=== PATIENT | female | born 1965 | race Caucasian/White ===

== ENCOUNTER 2016-05-20 21:49 | Emergency (ER) | payer BC ==
[2016-05-20] MEDS ORDERED: NS 0.9% 1000 ML* 1,000 ML IV ONE (22:31)
--- NOTE | 2016-05-20 22:51 | ED ---
Man Miranda Billy, scribed for Terry Mccall MD on 05/20/16 at 2232 . Abdominal Pain/Female - HPI Summary HPI Summary: Patient is a 51 year-old female coming to [facility] with intermittent LUQ abdominal pain since 1899 last night. Pain radiated throughout her arms bilaterally. She took a gabapentin before bed last night, which improved her symptoms. This morning, she woke up and it felt better, but she had a 15-minute episode of pain "so bad that she was brought to her knees." The pain has been constant for the last hour. Pain at this time 05/24. She also reports nausea. She states that she has had these spasms in the past, as they are a known side effect of her oral chemotherapy (to treat BCC) but she reports that they have never been quite so severe. - History of Current Complaint Chief Complaint: EDAbdPain Stated Complaint: ABD PAIN Time Seen by Provider: 05/20/16 22:24 Hx Obtained From: Patient Hx Last Menstrual Period: Mirena - NO MENSES Onset/Duration: Gradual Onset, Lasting Hours, Still Present Timing: Intermittent Episode Lasting Severity Initially: Moderate Severity Currently: Moderate Pain Intensity: 1 Pain Scale Used: 0-10 Numeric Location: Discrete At: LUQ Radiates: Yes Radiates to: Other - arms Character: Other: - "spasms" Aggravating Factor(s): Nothing Alleviating Factor(s): Nothing Associated Signs and Symptoms: Positive: Nausea Allergies/Adverse Reactions: Allergies Allergy/AdvReac Type Severity Reaction Status Date / Time Azithromycin AdvReac Severe See Comment Verified 10/28/15 16:07 Acetaminophen [From Tylenol] AdvReac Unknown See Comment Verified 10/28/15 16:07 HAS STOMACH ULCER Allergy Severe See Comment Uncoded 10/28/15 16:07 PMH/Surg Hx/FS Hx/Imm Hx Endocrine/Hematology History: Denies: Hx Diabetes, Hx Thyroid Disease Cardiovascular History: Denies: Hx Congestive Heart Failure, Hx Hypertension, Hx Pacemaker/ICD Respiratory History: Denies: Hx Asthma, Hx Chronic Obstructive Pulmonary Disease (COPD) GI History: Reports: Other GI Disorders Denies: Hx Ulcer History: Denies: Hx Renal Disease Sensory History: Reports: Hx Contacts or Glasses - GLASSES Opthamlomology History: Reports: Hx Contacts or Glasses - GLASSES Neurological History: Reports: Other Neuro Impairments/Disorders - HX OF VERTIGO Psychiatric History: Reports: Hx Panic Disorder - ONCE - Cancer History Cancer Type, 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 - Social History Alcohol Use: Rare Substance Use Type: Reports: None Smoking Status (MU): Former Smoker Review of Systems Negative: Fever Positive: Abdominal Pain, Nausea All Other Systems Reviewed And Are Negative: Yes Physical Exam Triage Information Reviewed: Yes Vital Signs On Initial Exam: Initial Vitals Temp Pulse Resp BP Pulse Ox 97 F 64 16 147/75 100 05/20/16 21:51 05/20/16 21:51 05/20/16 21:51 05/20/16 21:51 05/20/16 21:51 Vital Signs Reviewed: Yes Appearance: Positive: Well-Appearing, No Pain Distress Skin: Positive: Warm Head/Face: Positive: Normal Head/Face Inspection ENT: Positive: Hearing grossly normal Neck: Positive: Supple Respiratory/Lung Sounds: Positive: Clear to Auscultation, Breath Sounds Present Cardiovascular: Positive: Normal Abdomen Description: Positive: Nontender, No Organomegaly, Soft. Negative: CVA Tenderness (R), CVA Tenderness (L) Bowel Sounds: Positive: Present Musculoskeletal: Positive: Strength/ROM Intact Neurological: Positive: Sensory/Motor Intact Psychiatric: Positive: Normal Diagnostics - Vital Signs Vital Signs Temp Pulse Resp BP Pulse Ox 05/20/16 21:51 97 F 64 16 147/75 100 - Laboratory Result Diagrams: 05/20/16 22:45 05/20/16 22:45 Lab Statement: Any lab studies that have been ordered have been reviewed, and results considered in the medical decision making process. Re-Evaluation - Re-Evaluation First Eval Change: Improved - rdsults d/wpt Abdominal Pain Fem Course/Dx - Course Course Of Treatment: 51 year-old female cancer patient coming to the ED with CC of abd pain. She states that these symptoms are similar, albeit worse, to previous episodes of pain related to her oral chemotherapy. In the ED, she was given Zofran, morphine IM, and IV NS. She will be discharged to follow-up with PCP. - Diagnoses Provider Diagnoses: Abdominal pain Discharge - Discharge Plan Condition: Stable Disposition: HOME Patient Education Materials: Abdominal Pain (ED) Referrals: Martin Landin MD [Primary Care Provider] - The documentation as recorded by the Man chappell Billy accurately reflects the service I personally performed and the decisions made by me, Terry Mccall MD.
[2016-05-20 23:00] LABS: Hematocrit 40 % (35-47); Hemoglobin 13.3 g/dl (12.0-16.0); Mean Corpuscular HGB Conc 33 g/dl (31-36); Mean Corpuscular Hemoglobin 26 pg (27-31); Mean Corpuscular Volume 79 fL (80-97); Mean Platelet Volume 9 um3 (7.4-10.4); Red Blood Count 5.07 10^6/ul (4.0-5.4); Red Cell Distribution Width 15 % (10.5-15); White Blood Count 5.7 10^3/ul (3.5-10.8)
[2016-05-20] MEDS ORDERED: Ondansetron INJ* 2 MG/ML VIAL ONE (23:11)
[2016-05-20 23:12] LABS: Albumin 3.9 g/dL (3.2-5.2); BUN/Creatinine Ratio 14.5 (8-20); Calcium 8.9 mg/dL (8.6-10.3); EGFR African American 93.6 (>60); EGFR Non-African American 72.8 (>60); Globulin 2.9 g/dL (2-4); Total Bilirubin 0.4 mg/dL (0.2-1.0); Total Protein 6.8 g/dL (6.4-8.9)
[2016-05-20] MEDS: Ondansetron ODT TAB* 4 MG PO ONE ×2 (23:26→23:39)
[2016-05-20] MEDS ORDERED: Ondansetron INJ* 2 MG/ML VIAL IV ONE (23:38)
[2016-05-20 23:50] LABS: Urine Bilirubin Negative (Negative); Urine Glucose Negative (Negative); Urine Nitrite Negative (Negative)
[2016-05-20] MEDS ORDERED: Morphine INJ* 4 MG/ML 1 ML CARPUJECT IV ONE (23:58)
[2016-05-21 01:11] VITALS: BP 118/71
== END 2016-05-21 01:10 | disposition home or self-care (01) ==
LOC: ED 21:49
DX: R10.12 Left upper quadrant pain (principal); R11.0 Nausea; C44.91 Basal cell carcinoma of skin, unspecified; Z88.6 Allergy status to analgesic agent; Z88.1 Allergy status to other antibiotic agents; Z87.891 Personal history of nicotine dependence
CPT/HCPCS: 36415; 80053; 81003; 83605; 85025; 96361; 96374; 96375; 99284; J2270; J2405

== ENCOUNTER 2016-11-18 07:34 | Emergency (ER) | payer BC ==
[2016-11-18 07:39] VITALS: BP 111/72
--- NOTE | 2016-11-18 07:57 | UC ---
Shoulder Pain HPI - HPI Summary HPI Summary: ONSET OF RIGHT ANTERIOR SHOULDER PAIN YESTERDAY. WAS MOVING BOXES THE DAY BEFORE. NO OTHER DISCRETE INJURY. - History of Current Complaint Chief Complaint: UCUpperExtremity Stated Complaint: SHOULDER PAIN Time Seen by Provider: 11/18/16 07:46 Hx Obtained From: Patient Hx Last Menstrual Period: Mirena - NO MENSES Onset/Duration: Sudden Onset, Lasting Hours, Still Present Timing: Constant Severity Initially: Moderate Severity Currently: Moderate Pain Intensity: 4 Pain Scale Used: 0-10 Numeric Character: Sharp Aggravating Factor(s): Movement Alleviating Factor(s): Rest Associated Signs And Symptoms: Positive: Negative Related History: Dominant Hand Right - Allergies/Home Medications Allergies/Adverse Reactions: Allergies Allergy/AdvReac Type Severity Reaction Status Date / Time Azithromycin AdvReac Severe See Comment Verified 10/13/16 09:28 Acetaminophen [From Tylenol] AdvReac Unknown See Comment Verified 10/13/16 09:28 HAS STOMACH ULCER Allergy Severe See Comment Uncoded 10/13/16 09:28 PMH/Surg Hx/FS Hx/Imm Hx Other Cancer History: BASAL CELL NEVUS SYNDROME - Surgical History Surgical History: Yes Surgery Procedure, Year, and Place: LAPBAND,KNEE,NOSE,BREAST,INTESTINAL INTUCCEPTION-4 YRS AGO([facility]) (PARTIAL COLECTOMY) - Family History Known Family History: Positive: Hypertension Family History: No FHx of malignant hyperthermia or anesthesia reaction. - Social History Alcohol Use: Rare Substance Use Type: None Smoking Status (MU): Former Smoker When Did the Patient Quit Smoking/Using Tobacco: 18 years ago - Immunization History Most Recent Influenza Vaccination: 2014 Review of Systems Constitutional: Negative Skin: Negative Respiratory: Negative Cardiovascular: Negative Gastrointestinal: Negative Musculoskeletal: Arthralgia All Other Systems Reviewed And Are Negative: Yes Physical Exam Triage Information Reviewed: Yes Appearance: Well-Appearing, No Pain Distress, Well-Nourished Vital Signs: Initial Vital Signs Temp 97.6 F 11/18/16 07:36 Pulse 53 11/18/16 07:36 Resp 16 11/18/16 07:36 BP 111/72 11/18/16 07:36 Pulse Ox 100 11/18/16 07:36 Vital Signs Reviewed: Yes Eyes: Positive: Conjunctiva Clear ENT: Positive: Hearing grossly normal Neck: Positive: Supple Respiratory: Positive: No respiratory distress, No accessory muscle use Cardiovascular: Positive: Pulses Normal Abdomen Description: Positive: Soft Musculoskeletal: Positive: ROM Intact, No Edema, Other: - TTP BICEPS TENDON. POSITIVE YERGASONS AND SPEEDS Neurological: Positive: Alert Psychological: Positive: Age Appropriate Behavior Skin: Negative: rashes Diagnostics - Radiology RIGHT SHOULDER XRAY Xray Interpretation: Positive (See Comments) - A.C. OSTEOARTHRITIS. NO ACUTE OSSEOUS INJURY Radiology Interpretation Completed By: Radiologist Shoulder Course/Dx - Differential Dx/Diagnosis Provider Diagnoses: RIGHT BICEPS TENDONITIS Discharge - Discharge Plan Condition: Stable Disposition: HOME Prescriptions: Naproxen [Naproxen EC] 500 mg PO BID PRN #30 tab PRN Reason: Pain Patient Education Materials: Tendinitis (ED) Referrals: Chuy Roland MD [Medical Doctor] - If Needed Martin Landin MD [Primary Care Provider] - If Needed Additional Instructions: XRAY TODAY UNREMARKABLE. PRESENTATION CONSISTENT WITH BICEPS TENDONITIS. NSAIDS NEEDED. SLING FOR COMFORT. REFERRAL FOR PT PROVIDED TODAY. FOLLOW-UP ORTHO IF NOT IMPROVING. What is biceps tendinopathy? Biceps tendinopathy is a condition that can cause pain in the front of the shoulder. Doctors use the term biceps tendinopathy when people have a problem with their biceps tendon. The biceps is the muscle in the front of the upper arm. Tendons are strong bands of tissue that connect muscles to bones. In most people with biceps tendinopathy, the tendons are not inflamed or swollen. If they do get inflamed or swollen, doctors call it tendinitis. What causes biceps tendinopathy? This condition can happen as people get older , especially if they do a lot of work or activity with their arms overhead. Tendinitis can happen if people hurt their upper arm or shoulder, or do the same movements over and over. What are the symptoms of biceps tendinopathy? The most common symptoms are: Pain in the front of the shoulder The pain is usually worse at night and with lifting, pulling, or reaching overhead. Trouble moving the upper arm and shoulder People with tendinitis can also have swelling. Sometimes, an injured tendon tears. This can cause a sudden pop, pain, bruising , or swelling. Will I need tests? You might. Your doctor or nurse will talk with you and do an exam. He or she might also do an imaging test, such as an ultrasound or MRI scan. Imaging tests create pictures of the inside of the body. How is biceps tendinopathy treated? Most of the time, this condition will get better on its own, but it can take weeks to months to heal completely. For the first few days or weeks of your symptoms, you can try the following steps to see if you feel better: Rest your arm and shoulder Avoid lifting or reaching overhead. Try to keep your arm down, close to, and in front of your body. If you find you need to keep your arm still and close to your body for a while, do some pendulum swings (described below) from time to time. This will help keep you from getting too stiff. Ice the painful area Put a cold gel pack, bag of ice, or bag of frozen vegetables on the injured area every 1 to 2 hours, for 15 minutes each time, as needed. Put a thin towel between the ice (or other cold object) and your skin. Take medicine to reduce the swelling and pain To treat pain, you can take acetaminophen(sample brand name: Tylenol). Your doctor might also recommend that you take a nonsteroidal anti-inflammatory drug or NSAID. NSAIDs are a group of medicines that includes ibuprofen (sample brand names: Advil, Motrin) and naproxen (sample brand names: Aleve, Naprosyn). If your symptoms dont improve with these treatments, your doctor or nurse might recommend that you have physical therapy (work with an exercise expert). He or she might also recommend that you do exercises at home. The following shoulder exercises can help stretch your shoulder and keep it from getting too stiff: Pendulum swing Let your arm relax and hang down, while you sit or stand. Move your arm back and forth, then side to side, and then around in small circles. Try to do this exercise for 5 minutes, 1 or 2 times a day. Your doctor might suggest that you hold a weight in your hand when doing the exercise to make it harder. Wall walk Face a wall, and stand close enough so that you can touch the wall with your fingertips. Stretch out your arm, parallel to the floor, and put your fingertips on the wall. Then walk your fingers up the wall until you feel mild soreness or aching. Keep your shoulders level (do not shrug them). Try to do this exercise for 5 minutes, 2 or 3 times a day When you do these exercises, its important to: Warm up your shoulder first by taking a hot shower or bath, or putting a heating pad on it. Start slowly and make the exercises harder over time. Know that some soreness is normal. If you have sharp or tearing pain, stop what youre doing and let your doctor or nurse know. What if my symptoms dont get better? If your symptoms dont get better, talk with your doctor or nurse about other possible treatments, such as: Getting a shot of medicine into the painful area Surgery When will I be able to do my usual activities again? You can return to your usual activities when you are able to move your arm in all directions without pain. To avoid hurting yourself, restart your activities or sports slowly.
--- NOTE | 2016-11-18 08:51 | RAD ---
HISTORY: Right shoulder pain COMPARISONS: None VIEWS: 5, Frontal internal rotation, external rotation, outlet, and axillary views of the right shoulder FINDINGS: BONE DENSITY: Normal. BONES: There is no displaced fracture. JOINTS: There is osteoarthritis of the AC joint ALIGNMENT: There is no dislocation. SOFT TISSUES: Unremarkable. OTHER FINDINGS: None. IMPRESSION: A.C. OSTEOARTHRITIS. NO ACUTE OSSEOUS INJURY. IF SYMPTOMS PERSIST, RECOMMEND REPEAT IMAGING.
== END 2016-11-18 09:27 | disposition home or self-care (01) ==
LOC: UCEAST 07:34
DX: M75.21 Bicipital tendinitis, right shoulder (principal); Z88.6 Allergy status to analgesic agent; Z88.3 Allergy status to other anti-infective agents; Z87.891 Personal history of nicotine dependence; Z98.84 Bariatric surgery status; Z90.49 Acquired absence of other specified parts of digestive tract
CPT/HCPCS: 99213; G0463

== ENCOUNTER 2016-12-17 21:17 | Observation (INO) | payer BC ==
[2016-12-17 22:23] LABS: Hematocrit 42 % (35-47); Hemoglobin 14.1 g/dl (12.0-16.0); Mean Corpuscular HGB Conc 34 g/dl (31-36); Mean Corpuscular Hemoglobin 27 pg (27-31); Mean Corpuscular Volume 80 fL (80-97); Mean Platelet Volume 8 um3 (7.4-10.4); Red Cell Distribution Width 16 % (10.5-15); White Blood Count 6.6 10^3/ul (3.5-10.8)
[2016-12-17] MEDS ORDERED: NS 0.9% 1000 ML* 1,000 ML IV ONE (22:30)
[2016-12-17] MEDS ORDERED: Morphine INJ* 4 MG/ML 1 ML SYRINGE IV ONE (22:30)
[2016-12-17] MEDS ORDERED: Ondansetron INJ* 2 MG/ML VIAL IV ONE (22:30)
[2016-12-17 22:39] LABS: Albumin 4.1 g/dL (3.2-5.2); Calcium 9.2 mg/dL (8.6-10.3); EGFR African American 92.3 (>60); EGFR Non-African American 71.8 (>60); Globulin 2.9 g/dL (2-4); Potassium 3.5 mmol/L (3.5-5.0); Total Bilirubin 0.5 mg/dL (0.2-1.0)
[2016-12-17] MEDS ORDERED: Iohexol 350* (CONTRAST) 500 ML MDV IV ONE (22:52)
[2016-12-17 23:50] LABS: C Reactive Protein 3.72 mg/L (< 5.00)
--- NOTE | 2016-12-18 00:42 | ED ---
I, Oh,Soohraulito, scribed for Sanaz Patterson MD on 12/17/16 at 2145 . HPI Chest Pain - HPI Summary HPI Summary: This 51 y/o female presents to ED for gradually worsening chest tightness since this morning. Positive for LUE numbling/tingling tonight. Lying down makes the pain worse. Exhaling after inhaling makes the pain worse. PMHx includes basocell CA with mets with ongoing chemo. Normal cardiac cath in 2013. Pt is currently on Erivedge. Primary care involves Dr. Tafoya in [place] as her oncologist and Dr. Landin. FHx is positive for unspecified cardiac dz to brother and CA. Plan of care involving CT chest and D-dimer is discussed with pt. R/b/a reviewed. - History of Current Complaint Chief Complaint: EDChestPainROMI Time Seen by Provider: 12/17/16 21:26 Hx Obtained From: Patient, Medical Records Hx Last Menstrual Period: Mirena - NO MENSES Onset/Duration: Started Hours Ago, Atraumatic, Still Present Timing: Constant Pain Intensity: 6 Pain Scale Used: 0-10 Numeric Chest Pain Location: Diffuse Chest Pain Radiates: No Character: Tightness Aggravating Factor(s): Position - Lying down Alleviating Factor(s): Upright Position Associated Signs and Symptoms: Positive: Numbness - LUE, Tingling - LUE - Allergy/Home Medications Allergies/Adverse Reactions: Allergies Allergy/AdvReac Type Severity Reaction Status Date / Time Azithromycin AdvReac Severe See Comment Verified 12/17/16 21:33 Acetaminophen [From Tylenol] AdvReac Unknown See Comment Verified 12/17/16 21:33 HAS STOMACH ULCER Allergy Severe See Comment Uncoded 12/17/16 21:33 PMH/Surg Hx/FS Hx/Imm Hx Endocrine/Hematology History: Denies: Hx Diabetes, Hx Thyroid Disease Cardiovascular History: Denies: Hx Congestive Heart Failure, Hx Hypertension, Hx Pacemaker/ICD Respiratory History: Denies: Hx Asthma, Hx Chronic Obstructive Pulmonary Disease (COPD) GI History: Reports: Hx Diverticulosis, Hx Jaundice, Hx Ulcer, Other GI Disorders - liver fx 2013 due to medication History: Reports: Hx Kidney Stones Denies: Hx Renal Disease Sensory History: Reports: Hx Contacts or Glasses - GLASSES Opthamlomology History: Reports: Hx Contacts or Glasses - GLASSES Neurological History: Reports: Hx Headaches, Other Neuro Impairments/Disorders - HX OF VERTIGO Psychiatric History: Reports: Hx Panic Disorder - ONCE - Cancer History Cancer Type, Location and Year: Basal cell nevus syndrome 2012 Hx Chemotherapy: Yes - AGRESSIVE SKIN CANCER, 2 MONTHS ON, 1 MONTH OFF Hx Radiation Therapy: No - Surgical History Surgery Procedure, Year, and Place: LAPBAND,KNEE,NOSE,BREAST,INTESTINAL INTUCCEPTION-4 YRS AGO([facility]) (PARTIAL COLECTOMY) Hx Anesthesia Reactions: No Infectious Disease History: Denies: Hx Clostridium Difficile, Hx Hepatitis, Hx Human Immunodeficiency Virus (HIV), Hx of Known/Suspected MRSA, Hx Shingles, Hx Tuberculosis, Hx Known/ Suspected VRE, Hx Known/Suspected VRSA, History Other Infectious Disease, Traveled Outside the [place] in Last 30 Days - Family History Known Family History: Positive: Cardiac Disease - Unspecified cardiac dz to brother, Hypertension - Social History Lives: With Family Alcohol Use: Rare Hx Substance Use: No Substance Use Type: Reports: None Hx Tobacco Use: Yes Smoking Status (MU): Former Smoker Review of Systems Negative: Fever Positive: Chest Pain Positive: Other - RLE pain Positive: Numbness - Numbness/tingling at LUE All Other Systems Reviewed And Are Negative: Yes Physical Exam Triage Information Reviewed: Yes Vital Signs On Initial Exam: Initial Vitals Temp Pulse Resp BP Pulse Ox 97.2 F 50 16 125/74 100 12/17/16 21:18 12/17/16 21:18 12/17/16 21:18 12/17/16 21:18 12/17/16 21:18 Vital Signs Reviewed: Yes Appearance: Positive: Pain Distress - moderate Head/Face: Positive: Normal Head/Face Inspection Eyes: Positive: EOMI, KIRT Neck: Positive: Supple, Nontender Respiratory/Lung Sounds: Positive: Decreased Breath Sounds - left Cardiovascular: Positive: RRR, Pulses are Symmetrical in both Upper and Lower Extremities Musculoskeletal: Positive: Strength/ROM Intact Neurological: Positive: Sensory/Motor Intact, Alert, Oriented to Person Place, Time Psychiatric: Positive: Affect/Mood Appropriate AVPU Assessment: Alert Diagnostics - Vital Signs Vital Signs Temp Pulse Resp BP Pulse Ox 12/17/16 21:18 97.2 F 50 16 125/74 100 - Laboratory Lab Results: Lab Results 12/17/16 12/17/16 12/17/16 Range/Units 22:15 22:15 22:15 WBC 6.6 (3.5-10.8) 10^3/ul RBC 5.20 (4.0-5.4) 10^6/ul Hgb 14.1 (12.0-16.0) g/dl Hct 42 (35-47) % MCV 80 (80-97) fL MCH 27 (27-31) pg MCHC 34 (31-36) g/dl RDW 16 H (10.5-15) % Plt Count 196 (150-450) 10^3/ul MPV 8 (7.4-10.4) um3 Neut % (Auto) 71.6 (38-83) % Lymph % (Auto) 21.2 L (25-47) % Barry % (Auto) 4.4 (1-9) % Eos % (Auto) 1.7 (0-6) % Baso % (Auto) 1.1 (0-2) % Absolute Neuts (auto) 4.7 (1.5-7.7) 10^3/ul Absolute Lymphs (auto) 1.4 (1.0-4.8) 10^3/ul Absolute Monos (auto) 0.3 (0-0.8) 10^3/ul Absolute Eos (auto) 0.1 (0-0.6) 10^3/ul Absolute Basos (auto) 0.1 (0-0.2) 10^3/ul Absolute Nucleated RBC 0.02 10^3/ul Nucleated RBC % 0.3 Sodium 137 (133-145) mmol/L Potassium 3.5 (3.5-5.0) mmol/L Chloride 104 (101-111) mmol/L Carbon Dioxide 25 (22-32) mmol/L Anion Gap 8 (2-11) mmol/L BUN 16 (6-24) mg/dL Creatinine 0.84 (0.51-0.95) mg/dL Est GFR ( Amer) 92.3 (>60) Est GFR (Non-Af Amer) 71.8 (>60) BUN/Creatinine Ratio 19.0 (8-20) Glucose 95 (70-100) mg/dL Lactic Acid 1.2 (0.5-2.0) mmol/L Calcium 9.2 (8.6-10.3) mg/dL Total Bilirubin 0.50 (0.2-1.0) mg/dL AST 18 (13-39) U/L ALT 11 (7-52) U/L Alkaline Phosphatase 48 (34-104) U/L Troponin I 0.00 (<0.04) ng/mL C-Reactive Protein 3.72 (< 5.00) mg/L Total Protein 7.0 (6.4-8.9) g/dL Albumin 4.1 (3.2-5.2) g/dL Globulin 2.9 (2-4) g/dL Albumin/Globulin Ratio 1.4 (1-3) Result Diagrams: 12/17/16 22:15 12/17/16 22:15 Lab Statement: Any lab studies that have been ordered have been reviewed, and results considered in the medical decision making process. - Radiology CXR Radiology Interpretation Completed By: ED Physician - See EMR - CT CTA chest/thorax CT Interpretation: No Acute Changes CT Interpretation Completed By: Radiologist - EKG 2126 Cardiac Rate: Bradycardia EKG Rhythm: Sinus Bradycardia - 50 bpm EKG Interpretation: Normal compared to 05/02/2014 0018 Cardiac Rate: Bradycardia EKG Rhythm: Sinus Bradycardia - 47 bpm Re-Evaluation - Re-Evaluation First Eval Re-Evaluation Time: 00:23 Comment: MD in room to re-evaluate pt. Chest Pain Course/Dx - Course Course Of Treatment: 51 yo female with family hx of dvt and progressive skin ca diagnosis with chest pain, cta neg but pt had several bouts of tightness with pvc's. case was discussed with Dr. Black who will see pt - Diagnoses Provider Diagnoses: Chest pain - Provider Notifications Discussed Care Of Patient With: Keith Black Time Discussed With Above Provider: 00:27 Instructed by Provider To: Admit As Inpatient Discharge - Discharge Plan Condition: Stable Disposition: ADMITTED TO [facility] Referrals: Martin Landin MD [Primary Care Provider] - The documentation as recorded by the Chris chappell Soohyun accurately reflects the service I personally performed and the decisions made by me, Sanaz Patterson MD.
[2016-12-18] MEDS ORDERED: Morphine INJ* 4 MG/ML 1 ML SYRINGE IV ONE (00:44)
--- NOTE | 2016-12-18 01:13 | HP ---
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 She denies SOB, emesis, palpitations, F/C, cough, congestion, change in activity, or injury. She denies HX of similar. She is a light former smoker and has a family HX positive for early onset CAD. Pain has been helped by morphine and is worse lying flat or exhaling. ECG is benign. Troponin is 0.00. PMedHx basal cell nevus syndrome PUD psoriasis Ambulatory Orders Vismodegib [Erivedge] 150 mg PO DAILY 11/27/13 Epinephrine [Epipen 2-Kali] 0.3 mg SUBCUT ONCE PRN #1 kali 10/28/15 LoraTADine TAB(NF) [Claritin 10 MG TAB(NF)] 10 mg PO DAILY PRN #30 tab 10/28/15 Triamcinolone 0.1% CREAM(NF) [Kenalog Cream 0.1%(NF)] 1 applic TOPICAL TID PRN # 1 tube 10/28/15 diPHENhydraMINE PO* [Benadryl PO 50 MG CAP*] 50 mg PO Q6H PRN #30 cap 10/28/15 Morphine Sulfate [Morphine Sulfate Cr] 15 mg PO Q6H PRN 08/02/16 Pregabalin CAP(*) [Lyrica CAP(*)] 75 mg PO BEDTIME 08/02/16 Cyanocobalamin [B12] 1,000 mcg PO DAILY 10/13/16 Magnesium Oil 1 spray TOPICAL DAILY 10/13/16 Naproxen [Naproxen EC] 500 mg PO BID PRN #30 tab 11/18/16 Allergies Azithromycin Adverse Reaction (Severe, Verified 12/17/16 21:33) See Comment Cannot take concurrently with Erivedge d/t acute liver failure when she did these two medications together. Acetaminophen [From Tylenol] Adverse Reaction (Unknown, Verified 12/17/16 21:33) See Comment 7/16/14 - states that she does not take tylenol d/t recent acute liver failure 2ndary to taking zithromax with eviredge. HAS STOMACH ULCER Allergy (Severe, Uncoded 12/17/16 21:33) See Comment CANNOT TAKE MEDS THAT WOULD IRRITATE STOMACH ULCERS. PSurgHx septoplasty lap band bowel resection 2nd intussusception numerous BCC excisions SocHx: no tobacco, alcohol, or recreational drugs; lives with her ; has applied for disability; full code status FamHx: She is one of 14 siblings. Mother passed at 90 w/ colon CA, HTN, & a heart valve disorder. Father passed with HX of BCNS, late onset CAD, & CVA. A sister passed at 50 of an DC. Another sister passed of small bowel CA. A brother has hypertrophic cardiomyopathy. Otherwise positive for HTN & HLD. ROS: as above, otherwise reviewed and all were negative Constitutional: NAD, normally developed, overweight white female vitals: Vital Signs Temp 36.7 C 12/17/16 21:28 Pulse 50 12/17/16 21:28 Resp 16 12/18/16 01:04 BP 122/80 12/17/16 21:28 Pulse Ox 97 12/17/16 21:28 Intake & Output 12/17/16 12/17/16 12/18/16 11:59 23:59 11:59 Weight 86.183 kg HEENM: atraumatic; mild macrocephaly with hypertelorism; sclera/conjunctiva: non -icteric/clear; hearing: clinically intact; oropharynx: clear, mucosa tacky Neck: soft tissue: non-tender; thyroid: normal Pulmonary: clear to auscultation bilaterally, good aeration, no accessory muscle use CV: RR/RR, normal S1S2, no carotid bruit, no jugular venous distention, 2+ B DP/ PT, no edema Abdominal: soft, non-distended, non-tender, no rebound/guarding/rigidity, normoactive bowel sounds, no hepatosplenomegaly or masses, no costovertebral angle tenderness Musculoskeletal: general: grossly intact; gait: stable Integumental: normal appearance and texture of exposed skin Psychiatric orientation: AA&O to PPS affect: calm mood: cooperative eye contact: good content: reliable responses: timely insight: good Testing: Lab Results 12/17/16 12/17/1617 Range/Units 22:15 22:15 22:15 WBC 6.6 (3.5-10.8) 10^3/ul RBC 5.20 (4.0-5.4) 10^6/ul Hgb 14.1 (12.0-16.0) g/dl Hct 42 (35-47) % MCV 80 (80-97) fL MCH 27 (27-31) pg MCHC 34 (31-36) g/dl RDW 16 H (10.5-15) % Plt Count 196 (150-450) 10^3/ul MPV 8 (7.4-10.4) um3 Neut % (Auto) 71.6 (38-83) % Lymph % (Auto) 21.2 L (25-47) % Bremer % (Auto) 4.4 (1-9) % Eos % (Auto) 1.7 (0-6) % Baso % (Auto) 1.1 (0-2) % Absolute Neuts (auto) 4.7 (1.5-7.7) 10^3/ul Absolute Lymphs (auto) 1.4 (1.0-4.8) 10^3/ul Absolute Monos (auto) 0.3 (0-0.8) 10^3/ul Absolute Eos (auto) 0.1 (0-0.6) 10^3/ul Absolute Basos (auto) 0.1 (0-0.2) 10^3/ul Absolute Nucleated RBC 0.02 10^3/ul Nucleated RBC % 0.3 Sodium 137 (133-145) mmol/L Potassium 3.5 (3.5-5.0) mmol/L Chloride 104 (101-111) mmol/L Carbon Dioxide 25 (22-32) mmol/L Anion Gap 8 (2-11) mmol/L BUN 16 (6-24) mg/dL Creatinine 0.84 (0.51-0.95) mg/dL Est GFR ( Amer) 92.3 (>60) Est GFR (Non-Af Amer) 71.8 (>60) BUN/Creatinine Ratio 19.0 (8-20) Glucose 95 (70-100) mg/dL Lactic Acid 1.2 (0.5-2.0) mmol/L Calcium 9.2 (8.6-10.3) mg/dL Total Bilirubin 0.50 (0.2-1.0) mg/dL AST 18 (13-39) U/L ALT 11 (7-52) U/L Alkaline Phosphatase 48 (34-104) U/L Troponin I 0.00 (<0.04) ng/mL C-Reactive Protein 3.72 (< 5.00) mg/L Total Protein 7.0 (6.4-8.9) g/dL Albumin 4.1 (3.2-5.2) g/dL Globulin 2.9 (2-4) g/dL Albumin/Globulin Ratio 1.4 (1-3) ECG, personally reviewed: sinus bradycardia rate 47, no ischemia, poor R-wave progression CXR, personally reviewed: no acute process CTA chest, personally reviewed: no PE; official report pending Impression: 51F presenting with chest pain for r/o ACS DIAGNOSIS & PLAN Primary chest pain r/o ACS : telemetry : trend troponin : aspirin : no beta tyler 2nd bradycardia : 1/2" nitropaste : supplemental oxygen : if negative troponins, no ischemic ECG changes, or relevant telemetry abnormalities consider outpatient stress next week Secondary basal cell nevus syndrome : continue vismodegib 150mg PO daily PUD : IV pantoprazole Admission Rational: CDU observation for r/o ACS DVTp: SCDs Code Status: full HCP:
[2016-12-18] MEDS ORDERED: Albuterol 2.5 MG/3 ML NEB.SOL* (0.083%) INH PRN (01:16)
[2016-12-18] MEDS ORDERED: Morphine INJ* 2 MG/ML 1 ML SYRINGE IV PRN (01:48)
[2016-12-18] MEDS ORDERED: Ondansetron INJ* 2 MG/ML VIAL IV PRN (01:48)
[2016-12-18] MEDS ORDERED: Aspirin Low Dose CHEW TAB* 81 MG PO ONE (01:48)
[2016-12-18] MEDS ORDERED: Pantoprazole IV* 40 MG IV SCH (02:00)
[2016-12-18] MEDS ORDERED: NS 0.9% 1000 ML* 1,000 ML IV SCH (02:00)
[2016-12-18] MEDS: Nitroglycerin 2% OINT* 1 GM PAK TOPICAL SCH ×2 (02:28→08:02)
[2016-12-18] MEDS ORDERED: Omeprazole CAP* 20 MG PO SCH (06:00)
[2016-12-18] MEDS ORDERED: Nitro Patch/OINT Remove PATCH OFF SCH (08:00)
[2016-12-18] MEDS ORDERED: Docusate CAP* 100 MG PO SCH (09:00)
--- NOTE | 2016-12-18 10:15 | RAD ---
INDICATION: Pleuritic chest pain. History of skin cancer. Heaviness with breathing. COMPARISON: Chest radiograph of the same date and May 02, 2014 CT. TECHNIQUE: Multidetector CT images were obtained from the lung apices to the upper abdomen with 74 mL Omnipaque 350 IV contrast. Pulmonary angiogram protocol. Multiplanar reformation including with maximum intensity projection. REPORT: Clear lungs and pleural spaces. Negative for thoracic lymphadenopathy. 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 Normal diameter thoracic aorta. Upper normal heart size. Negative for pericardial effusion. No filling defects are identified from the main to the subsegmental pulmonary arteries to indicate presence of a pulmonary embolism. Limited images through the upper abdomen are remarkable for cholelithiasis and a laparoscopic gastric band. 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 No suspicious focal osseous lesions evident. IMPRESSION: No evidence for pulmonary embolism or other acute intrathoracic process.
--- NOTE | 2016-12-18 11:28 | RAD ---
Indication: Chest pain intermittent for one week. Now LEFT-sided. Comparison: CT pulmonary angiogram of the same date. Technique: Upright AP 2204 hours Report: Clear lungs and pleural spaces. Negative for pneumothorax. The heart, pulmonary vasculature, and mediastinal contours are unremarkable. Unremarkable osseous structures and soft tissue contours. IMPRESSION: No evidence for acute intrathoracic disease.
[2016-12-18 11:34] VITALS: BP 96/62
--- NOTE | 2016-12-19 07:13 | DS ---
CC: Dr. Landin * DISCHARGE SUMMARY: DATE OF ADMISSION: 12/17/16 DATE OF DISCHARGE: 12/18/16 PRIMARY CARE PROVIDER: Dr. Landin. PRIMARY DIAGNOSES: Chest pain secondary to costochondritis or muscle spasm. SECONDARY DIAGNOSES: 1. Basal cell nevus syndrome. 2. Peptic ulcer disease. 3. Psoriasis. MEDICATIONS ON DISCHARGE: Unchanged from admission. Includes: 1. Magnesium oil 1 spray topically daily. 2. Loratadine 10 mg daily as needed. 3. Vitamin B12 1000 mcg daily. 4. Naproxen 500 mg twice daily as needed. 5. Morphine sulfate 15 mg every 6 hours as needed. 6. Erivedge 150 mg daily. 7. Triamcinolone 0.1% cream topically 3 times a day as needed. 8. Lyrica 75 mg at bedtime. 9. Benadryl 50 mg every 6 hours as needed. PERTINENT IMAGING STUDIES: Includes CTA chest and thorax. Impression: No evidence for pulmonary embolism or other acute intrathoracic processes. PERTINENT LABORATORY DATA: Troponin I 0.00 on three checks. HISTORY OF PRESENT ILLNESS AND HOSPITAL COURSE: This is a 51-year-old female with a past medical history as outlined in the history of present illness on the day of admission including basal cell nevus syndrome, on Erivedge as spelled above, presented to the hospital with chest pain as described as spasm similar that she has experienced elsewhere in varying parts of her body. The patient noted that her chest wall is tender to palpation which was characteristic. She was admitted to the hospital, monitored on telemetry with no events. She subsequently had 3 negative troponins and a normal EKG. At this point, the chest pain was not thought to represent ACS. She will be discharged to follow up with Dr. Landin in the setting of chest wall tenderness and pain similar to these symptoms, although at other differing locations on her body. She will not be set up with an outpatient stress test. It will be discussed further Dr. Landin, spasms at various locations have been a complication of ongoing her chemotherapy. At followup please: 1. Please discuss symptomatology to decide on outpatient stress if deemed necessary. 2. No other specific labs or vitals that need followup. Reasons to return to the hospital including but not limited to recurrent or worsening symptoms including chest pain, shortness of breath, nausea, vomiting, lightheadedness, loss of consciousness, near loss of consciousness, inability to obtain or tolerate medications were discussed with the patient and her . TIME SPENT: Greater than 45 minutes were spent on discharging the patient, greater than half was spent [id number] with the patient. [id number]/CPS #: [id number] MTDD
== END 2016-12-18 12:55 | disposition home or self-care (01) ==
LOC: ED 21:17 → MEDTELE 12-18 00:21
PROVIDERS: ADMIT Hospitalist; ATTEND Internal Medicine
DX: R07.9 Chest pain, unspecified (principal); M79.602 Pain in left arm; R11.0 Nausea; R42 Dizziness and giddiness; R00.1 Bradycardia, unspecified; R68.2 Dry mouth, unspecified; K25.9 Gastric ulcer, unspecified as acute or chronic, without hemorrhage or perforation; L40.9 Psoriasis, unspecified; Z87.891 Personal history of nicotine dependence; Z85.828 Personal history of other malignant neoplasm of skin
CPT/HCPCS: 36415; 71010; 71275; 80053; 83605; 84484; 85025; 86140; 93005; 96374; 96375; 99285; A9270-GY; G0378; J2270; J2405; Q9967

== ENCOUNTER 2017-03-13 09:41 | Emergency (ER) | payer BC ==
[2017-03-13] MEDS ORDERED: Aspirin Low Dose CHEW TAB* 81 MG PO ONE (09:51)
--- NOTE | 2017-03-13 10:22 | RAD ---
INDICATION: Chest pain COMPARISON: December 17, 2016 TECHNIQUE: An AP portable view obtained at 1000 hours is submitted. FINDINGS: Bones/Soft Tissues: There are no acute bony findings. Cardiomediastinal: The cardiomediastinal silhouette is normal. Lungs: There are no infiltrates. Pleura: There are no pleural effusions. Other: None IMPRESSION: NO ACTIVE DISEASE.
[2017-03-13 10:34] LABS: Hematocrit 41 % (35-47); Mean Corpuscular HGB Conc 34 g/dl (31-36); Mean Corpuscular Hemoglobin 27 pg (27-31); Mean Corpuscular Volume 80 fL (80-97); Mean Platelet Volume 8 um3 (7.4-10.4); Red Blood Count 5.12 10^6/ul (4.0-5.4); Red Cell Distribution Width 14 % (10.5-15); White Blood Count 7.9 10^3/ul (3.5-10.8)
[2017-03-13 10:38] LABS: Albumin 4.3 g/dL (3.2-5.2); BUN/Creatinine Ratio 10.8 (8-20); Calcium 9.5 mg/dL (8.6-10.3); EGFR African American 106.8 (>60); EGFR Non-African American 83.1 (>60); Potassium 3.8 mmol/L (3.5-5.0); Total Bilirubin 1.1 mg/dL (0.2-1.0); Total Protein 7.3 g/dL (6.4-8.9)
[2017-03-13 11:03] LABS: EBV Response YES
[2017-03-13 11:16] LABS: Urine Bilirubin Negative (Negative); Urine Glucose Negative (Negative); Urine Nitrite Negative (Negative)
[2017-03-13 11:20] LABS: TSH (Thyroid Stimulating Horm) 1.2 mcIU/mL (0.34-5.60)
[2017-03-13 11:53] LABS: Manual Entry Verification HAN0055
[2017-03-13 11:58] LABS: Mono Internal Control QC Line Present
[2017-03-13 12:37] VITALS: BP 117/70
--- NOTE | 2017-03-13 18:34 | ED ---
Clinton Miranda Angela, scribed for Lester Rodriguez MD on 03/13/17 at 1021 . HPI Chest Pain - HPI Summary HPI Summary: This pt is a 51 y/o female presenting to [facility] c/o upper respiratory infection symptoms for 6-8 weeeks and chest pain for 6 weeks. Pt states she was admitted to the hospital 1 month ago for chest pain and everything was fine. She reports her glands are swollen and her head sweats at night. Pt denies fever, cough, SOB , diarrhea. Pt is currently on Erivedge for oral chemotherapy for aggressive skin cancer and is followed by Dr. Bill (her oncologist in [place]). - History of Current Complaint Chief Complaint: EDChestPainROMI Time Seen by Provider: 03/13/17 09:50 Hx Obtained From: Patient Hx Last Menstrual Period: 02/23/17 Onset/Duration: Started Weeks Ago, Still Present Timing: Lasting Weeks Current Severity: Mild Pain Intensity: 3 Pain Scale Used: 0-10 Numeric Chest Pain Location: Diffuse Chest Pain Radiates: No Associated Signs and Symptoms: Positive: Chest Pain. Negative: Shortness of Breath, Fever, Nausea - Allergy/Home Medications Allergies/Adverse Reactions: Allergies Allergy/AdvReac Type Severity Reaction Status Date / Time Azithromycin AdvReac Severe See Comment Verified 03/13/17 08:44 Acetaminophen [From Tylenol] AdvReac Unknown See Comment Verified 03/13/17 08:44 HAS STOMACH ULCER Allergy Severe See Comment Uncoded 03/13/17 08:44 PMH/Surg Hx/FS Hx/Imm Hx Endocrine/Hematology History: Denies: Hx Diabetes, Hx Thyroid Disease Cardiovascular History: Denies: Hx Congestive Heart Failure, Hx Hypertension, Hx Pacemaker/ICD Respiratory History: Denies: Hx Asthma, Hx Chronic Obstructive Pulmonary Disease (COPD) GI History: Reports: Hx Diverticulosis, Hx Jaundice, Hx Ulcer, Other GI Disorders - liver fx 2013 due to medication History: Reports: Hx Kidney Stones Denies: Hx Renal Disease Sensory History: Reports: Hx Contacts or Glasses - GLASSES Denies: Hx Hearing Aid Opthamlomology History: Reports: Hx Contacts or Glasses - GLASSES Neurological History: Reports: Hx Headaches, Hx Migraine, Other Neuro Impairments/Disorders - HX OF VERTIGO Psychiatric History: Reports: Hx Panic Disorder - ONCE - Cancer History Cancer Type, Location and Year: Basal cell nevus syndrome 2012 Hx Chemotherapy: Yes - AGRESSIVE SKIN CANCER, 2 MONTHS ON, 1 MONTH OFF Hx Radiation Therapy: No - Surgical History Surgery Procedure, Year, and Place: LAPBAND,KNEE,NOSE,BREAST,INTESTINAL INTUCCEPTION-4 YRS AGO([facility] (PARTIAL COLECTOMY) Hx Anesthesia Reactions: No - Immunization History Date of Tetanus Vaccine: utd Date of Influenza Vaccine: utd Infectious Disease History: No Infectious Disease History: Denies: Hx Clostridium Difficile, Hx Hepatitis, Hx Human Immunodeficiency Virus (HIV), Hx of Known/Suspected MRSA, Hx Shingles, Hx Tuberculosis, Hx Known/ Suspected VRE, Hx Known/Suspected VRSA, History Other Infectious Disease, Traveled Outside the [place] in Last 30 Days - Family History Known Family History: Positive: Cardiac Disease - Unspecified cardiac dz to brother, Hypertension Family History: No FHx of malignant hyperthermia or anesthesia reaction. - Social History Alcohol Use: Rare Hx Substance Use: No Substance Use Type: Reports: None Substance Use Comment - Amount & Last Used: prescribed morphine Hx Tobacco Use: Yes Smoking Status (MU): Former Smoker Review of Systems Positive: Skin Diaphoresis - head. Negative: Fever, Chills Positive: Other - swollen glands, URI symptoms Positive: Chest Pain Negative: Shortness Of Breath, Cough Negative: Diarrhea All Other Systems Reviewed And Are Negative: Yes Physical Exam - Summary Physical Exam Summary: VITAL SIGNS: Reviewed. GENERAL: Patient is a well-developed and nourished female who is lying comfortable in the stretcher. Patient is not in any acute respiratory distress. HEAD AND FACE: No signs of trauma. No ecchymosis, hematomas or skull depressions. No sinus tenderness. EYES: PERRLA, EOMI x 2, No injected conjunctiva, no nystagmus. EARS: Hearing grossly intact. Ear canals and tympanic membranes are within normal limits. MOUTH: Oropharynx within normal limits. NECK: Supple, trachea is midline, no adenopathy, no JVD, no carotid bruit, no c- spine tenderness, neck with full ROM. CHEST: Symmetric, no tenderness at palpation LUNGS: Clear to auscultation bilaterally. No wheezing or crackles. CVS: Regular rate and rhythm, S1 and S2 present, no murmurs or gallops appreciated. ABDOMEN: Soft, non-tender. No signs of distention. No rebound no guarding, and no masses palpated. Bowel sounds are normal. EXTREMITIES: FROM in all major joints, no edema, no cyanosis or clubbing. NEURO: Alert and oriented x 3. No acute neurological deficits. Speech is normal and follows commands. SKIN: Dry and warm Triage Information Reviewed: Yes Vital Signs On Initial Exam: Initial Vitals Temp Pulse Resp BP Pulse Ox 98.1 F 56 20 129/75 99 03/13/17 09:43 03/13/17 09:43 03/13/17 09:43 03/13/17 09:43 03/13/17 09:43 Vital Signs Reviewed: Yes Diagnostics - Vital Signs Vital Signs Temp Pulse Resp BP Pulse Ox 03/13/17 09:43 98.1 F 56 20 129/75 99 - Laboratory Lab Results: Lab Results 03/13/17 03/13/17 03/13/17 Range/Units 10:10 10:10 10:10 WBC (3.5-10.8) 10^3/ul RBC (4.0-5.4) 10^6/ul Hgb (12.0-16.0) g/dl Hct (35-47) % MCV (80-97) fL MCH (27-31) pg MCHC (31-36) g/dl RDW (10.5-15) % Plt Count (150-450) 10^3/ul MPV (7.4-10.4) um3 Neut % (Auto) (38-83) % Lymph % (Auto) (25-47) % Weld % (Auto) (1-9) % Eos % (Auto) (0-6) % Baso % (Auto) (0-2) % Absolute Neuts (auto) (1.5-7.7) 10^3/ul Absolute Lymphs (auto) (1.0-4.8) 10^3/ul Absolute Monos (auto) (0-0.8) 10^3/ul Absolute Eos (auto) (0-0.6) 10^3/ul Absolute Basos (auto) (0-0.2) 10^3/ul Absolute Nucleated RBC 10^3/ul Nucleated RBC % APTT 27.9 (26.0-36.3) seconds Sodium 135 (133-145) mmol/L Potassium 3.8 (3.5-5.0) mmol/L Chloride 104 (101-111) mmol/L Carbon Dioxide 25 (22-32) mmol/L Anion Gap 6 (2-11) mmol/L BUN 8 (6-24) mg/dL Creatinine 0.74 (0.51-0.95) mg/dL Est GFR ( Amer) 106.8 (>60) Est GFR (Non-Af Amer) 83.1 (>60) BUN/Creatinine Ratio 10.8 (8-20) Glucose 91 (70-100) mg/dL Calcium 9.5 (8.6-10.3) mg/dL Magnesium 2.0 (1.9-2.7) mg/dL Total Bilirubin 1.10 H (0.2-1.0) mg/dL AST 19 (13-39) U/L ALT 14 (7-52) U/L Alkaline Phosphatase 67 (34-104) U/L Total Creatine Kinase 35 (10-223) U/L Troponin I 0.00 (<0.04) ng/mL B-Natriuretic Peptide 24 ( - 100) pg/mL Total Protein 7.3 (6.4-8.9) g/dL Albumin 4.3 (3.2-5.2) g/dL Globulin 3.0 (2-4) g/dL Albumin/Globulin Ratio 1.4 (1-3) TSH 1.20 (0.34-5.60) mcIU/mL Urine Color Urine Appearance Urine pH (5-9) Ur Specific [place] (1.010-1.030) Urine Protein (Negative) Urine Ketones (Negative) Urine Blood (Negative) Urine Nitrate (Negative) Urine Bilirubin (Negative) Urine Urobilinogen (Negative) Ur Leukocyte Esterase (Negative) Urine Glucose (Negative) Monoscreen (Negative) Influenza A (Rapid) (Negative) Influenza B (Rapid) (Negative) Group A Strep Rapid (Negative) 03/13/17 03/13/17 03/13/17 Range/Units 10:10 10:10 10:53 WBC 7.9 (3.5-10.8) 10^3/ul RBC 5.12 (4.0-5.4) 10^6/ul Hgb 14.0 (12.0-16.0) g/dl Hct 41 (35-47) % MCV 80 (80-97) fL MCH 27 (27-31) pg MCHC 34 (31-36) g/dl RDW 14 (10.5-15) % Plt Count 165 (150-450) 10^3/ul MPV 8 (7.4-10.4) um3 Neut % (Auto) 82.1 (38-83) % Lymph % (Auto) 9.6 L (25-47) % Weld % (Auto) 6.9 (1-9) % Eos % (Auto) 0.9 (0-6) % Baso % (Auto) 0.5 (0-2) % Absolute Neuts (auto) 6.5 (1.5-7.7) 10^3/ul Absolute Lymphs (auto) 0.8 L (1.0-4.8) 10^3/ul Absolute Monos (auto) 0.5 (0-0.8) 10^3/ul Absolute Eos (auto) 0.1 (0-0.6) 10^3/ul Absolute Basos (auto) 0 (0-0.2) 10^3/ul Absolute Nucleated RBC 0 10^3/ul Nucleated RBC % 0.1 APTT (26.0-36.3) seconds Sodium (133-145) mmol/L Potassium (3.5-5.0) mmol/L Chloride (101-111) mmol/L Carbon Dioxide (22-32) mmol/L Anion Gap (2-11) mmol/L BUN (6-24) mg/dL Creatinine (0.51-0.95) mg/dL Est GFR ( Amer) (>60) Est GFR (Non-Af Amer) (>60) BUN/Creatinine Ratio (8-20) Glucose (70-100) mg/dL Calcium (8.6-10.3) mg/dL Magnesium (1.9-2.7) mg/dL Total Bilirubin (0.2-1.0) mg/dL AST (13-39) U/L ALT (7-52) U/L Alkaline Phosphatase (34-104) U/L Total Creatine Kinase (10-223) U/L Troponin I (<0.04) ng/mL B-Natriuretic Peptide ( - 100) pg/mL Total Protein (6.4-8.9) g/dL Albumin (3.2-5.2) g/dL Globulin (2-4) g/dL Albumin/Globulin Ratio (1-3) TSH (0.34-5.60) mcIU/mL Urine Color Straw Urine Appearance Clear Urine pH 7.0 (5-9) Ur Specific [place] 1.004 L (1.010-1.030) Urine Protein Negative (Negative) Urine Ketones Negative (Negative) Urine Blood Negative (Negative) Urine Nitrate Negative (Negative) Urine Bilirubin Negative (Negative) Urine Urobilinogen Negative (Negative) Ur Leukocyte Esterase Negative (Negative) Urine Glucose Negative (Negative) Monoscreen Negative (Negative) Influenza A (Rapid) (Negative) Influenza B (Rapid) (Negative) Group A Strep Rapid (Negative) 03/13/17 03/13/17 Range/Units 11:10 11:14 WBC (3.5-10.8) 10^3/ul RBC (4.0-5.4) 10^6/ul Hgb (12.0-16.0) g/dl Hct (35-47) % MCV (80-97) fL MCH (27-31) pg MCHC (31-36) g/dl RDW (10.5-15) % Plt Count (150-450) 10^3/ul MPV (7.4-10.4) um3 Neut % (Auto) (38-83) % Lymph % (Auto) (25-47) % Weld % (Auto) (1-9) % Eos % (Auto) (0-6) % Baso % (Auto) (0-2) % Absolute Neuts (auto) (1.5-7.7) 10^3/ul Absolute Lymphs (auto) (1.0-4.8) 10^3/ul Absolute Monos (auto) (0-0.8) 10^3/ul Absolute Eos (auto) (0-0.6) 10^3/ul Absolute Basos (auto) (0-0.2) 10^3/ul Absolute Nucleated RBC 10^3/ul Nucleated RBC % APTT (26.0-36.3) seconds Sodium (133-145) mmol/L Potassium (3.5-5.0) mmol/L Chloride (101-111) mmol/L Carbon Dioxide (22-32) mmol/L Anion Gap (2-11) mmol/L BUN (6-24) mg/dL Creatinine (0.51-0.95) mg/dL Est GFR ( Amer) (>60) Est GFR (Non-Af Amer) (>60) BUN/Creatinine Ratio (8-20) Glucose (70-100) mg/dL Calcium (8.6-10.3) mg/dL Magnesium (1.9-2.7) mg/dL Total Bilirubin (0.2-1.0) mg/dL AST (13-39) U/L ALT (7-52) U/L Alkaline Phosphatase (34-104) U/L Total Creatine Kinase (10-223) U/L Troponin I (<0.04) ng/mL B-Natriuretic Peptide ( - 100) pg/mL Total Protein (6.4-8.9) g/dL Albumin (3.2-5.2) g/dL Globulin (2-4) g/dL Albumin/Globulin Ratio (1-3) TSH (0.34-5.60) mcIU/mL Urine Color Urine Appearance Urine pH (5-9) Ur Specific [place] (1.010-1.030) Urine Protein (Negative) Urine Ketones (Negative) Urine Blood (Negative) Urine Nitrate (Negative) Urine Bilirubin (Negative) Urine Urobilinogen (Negative) Ur Leukocyte Esterase (Negative) Urine Glucose (Negative) Monoscreen (Negative) Influenza A (Rapid) Negative (Negative) Influenza B (Rapid) Negative (Negative) Group A Strep Rapid Negative (Negative) Result Diagrams: 03/13/17 10:10 03/13/17 10:10 Lab Statement: Any lab studies that have been ordered have been reviewed, and results considered in the medical decision making process. - Radiology Chest XR Xray Interpretation: No Acute Changes - IMPRESSION: No active disease. ED physician has reviewed this radiology report and agrees. Radiology Interpretation Completed By: Radiologist - EKG [id number] Cardiac Rate: Bradycardia - 54 bpm EKG Rhythm: Sinus Rhythm EKG Interpretation: No ST elevation EKG Comparison: No Significant Change - similar to EKG done on 12/18/16. Re-Evaluation - Re-Evaluation First Eval Re-Evaluation Time: 12:25 Comment: I discussed the lab and XR results with the pt. Chest Pain Course/Dx - Course Assessment/Plan: This pt is a 51 y/o female presenting to [facility] c/o upper respiratory infection for 6-8 weeeks and chest pain for 6 weeks. Pt states she was admitted to the hospital 1 month ago for chest pain and everything was fine. She reports her glands are swollen and her head sweats at night. Pt denies fever, cough, SOB, diarrhea. Pt is currently on Erivedge for oral chemotherapy for aggressive skin cancer and is followed by Dr. Bill (her oncologist in [place]). Test results without any significant abnormalities. Troponin is 0.00. UA is negative for UTI. Influenza A and B is negative. Rapid strep test is negative. Chest XR shows no active disease. The pt was admitted last week for the same symptoms. She was ruled out acute coronary syndrome; however she is taking erivedge for her chemotherapy. I believe her pain is actually musculoskeletal pain. At this point, since the pt does not have any pain I will discharge the pt home with follow up from her PCP. Pt is hemodynamically stable, alert and oriented x3. Pt is instructed to return to the ED for any increased pain, nausea, vomiting, sweating, and feeling of passing out. Pt understands and agrees. - Chest Pain Differential Diagnosis/HQI/PQRI: Other: - Chest pain, URI, - Diagnoses Provider Diagnoses: Upper respiratory tract infection Discharge - Discharge Plan Condition: Stable Disposition: HOME Patient Education Materials: Upper Respiratory Infection (ED) Referrals: Martin Landin MD [Primary Care Provider] - Additional Instructions: Please follow up with your primary care provider. RETURN TO THE ED FOR ANY WORSENING SYMPTOMS. The documentation as recorded by the Clinton chappell Angela accurately reflects the service I personally performed and the decisions made by , Lester Rodriguez MD.
[2017-03-14 14:44] LABS: EBV Capsid Ag IgG Ab Positive (Negative); EBV Capsid Ag IgM Ab Negative (Negative)
== END 2017-03-13 12:47 | disposition home or self-care (01) ==
LOC: ED 09:41
DX: J06.9 Acute upper respiratory infection, unspecified (principal); R07.9 Chest pain, unspecified; Z87.891 Personal history of nicotine dependence
CPT/HCPCS: 36415; 71010; 80053; 81003; 82550; 83735; 83880; 84443; 84484; 85025; 85730; 86308; 86664; 86665; 87040; 87502; 87651; 93005; 99283; A9270-GY

== ENCOUNTER 2017-08-30 00:52 | Emergency (ER) | payer MEDICARE, BC ==
[2017-08-30] MEDS ORDERED: NS 0.9% 1000 ML* 1,000 ML IV ONE (01:47)
[2017-08-30] MEDS ORDERED: Metoclopramide IV* 5 MG/ML 2 ML VIAL IV SLOW PU ONE (01:48)
[2017-08-30] MEDS ORDERED: Diazepam SYRINGE* 5 MG/ML 2 ML SYRINGE (10 MG total) IV ONE (01:48)
[2017-08-30 01:57] LABS: ABS Basophils 0.1 10^3/ul (0-0.2); ABS Eosinophils 0.1 10^3/ul (0-0.6); ABS Lymphocytes 1.3 10^3/ul (1.0-4.8); ABS Monocytes 0.4 10^3/ul (0-0.8); ABS Neutrophils 3.8 10^3/ul (1.5-7.7); ABS Nucleated RBC 0 10^3/ul; Eosinophil % 1.9 % (0-6); Hematocrit 40 % (35-47); Hemoglobin 13.8 g/dl (12.0-16.0); Lymphocyte % 22.8 % (25-47); Mean Corpuscular HGB Conc 34 g/dl (31-36); Mean Corpuscular Hemoglobin 27 pg (27-31); Mean Corpuscular Volume 80 fL (80-97); Mean Platelet Volume 8.3 um3 (7.4-10.4); Nucleated Red Blood Cells % 0.1; Platelet Count 186 10^3/ul (150-450); Red Blood Count 5.03 10^6/ul (4.0-5.4); Red Cell Distribution Width 15 % (10.5-15); White Blood Count 5.7 10^3/ul (3.5-10.8)
[2017-08-30] MEDS ORDERED: Diazepam INJ (NF) 5 MG/ML 10 ML VIAL (50 MG TOTAL) IV ONE (02:00)
[2017-08-30 02:33] LABS: EGFR Non-African American 73.5 (>60)
[2017-08-30] MEDS ORDERED: fentaNYL* 50 MCG/ML 2 ML VIAL (100 MCG VIAL) IV SLOW PU ONE (02:44)
[2017-08-30 03:58] VITALS: BP 129/85
--- NOTE | 2017-08-30 04:11 | ED ---
Jeremías Miranda Thomas, scribed for Adrián Souza MD on 08/30/17 at 0145 . Complex/Multi-Sys Presentation - HPI Summary HPI Summary: The patient is a 52 year old female complaining of generalized spasms. The patient has a history of skin cancer and she takes oral chemotherapy every other day, which has been giving her generalized spasms. She took Valium 5 mg earlier today. She took morphine 8 mg earlier today. She complains of nausea and vomiting. - History Of Current Complaint Chief Complaint: EDGeneral Time Seen by Provider: 08/30/17 01:30 Hx Obtained From: Patient Onset/Duration: Still Present Timing: Intermittent, Lasting: Severity Currently: Moderate Location: Pain At: - pain d/t generalized spasms Aggravating Factor(s): Oral chemotherapy Alleviating Factor(s): None Associated Signs And Symptoms: Positive: Other - Generalized spasms, nausea, vomiting Related History: Other - Oral chemotherapy - Allergies/Home Medications Allergies/Adverse Reactions: Allergies Allergy/AdvReac Type Severity Reaction Status Date / Time acetaminophen Allergy See Comment Verified 08/23/17 10:17 azithromycin Allergy See Comment Verified 08/23/17 10:17 HAS STOMACH ULCER Allergy Severe See Comment Uncoded 06/20/17 12:11 PMH/Surg Hx/FS Hx/Imm Hx Endocrine/Hematology History: Denies: Hx Diabetes, Hx Thyroid Disease Cardiovascular History: Denies: Hx Congestive Heart Failure, Hx Hypertension, Hx Pacemaker/ICD Respiratory History: Denies: Hx Asthma, Hx Chronic Obstructive Pulmonary Disease (COPD) GI History: Reports: Hx Diverticulosis, Hx Jaundice, Hx Ulcer, Other GI Disorders - liver fx 2013 due to medication History: Reports: Hx Kidney Stones Denies: Hx Renal Disease Sensory History: Reports: Hx Contacts or Glasses - GLASSES Denies: Hx Hearing Aid Opthamlomology History: Reports: Hx Contacts or Glasses - GLASSES Neurological History: Reports: Hx Headaches, Hx Migraine, Other Neuro Impairments/Disorders - HX OF VERTIGO Psychiatric History: Reports: Hx Panic Disorder - ONCE - Cancer History Cancer Type, Location and Year: Basal cell nevus syndrome 2012 Hx Chemotherapy: Yes - AGRESSIVE SKIN CANCER, 2 MONTHS ON, 1 MONTH OFF Hx Radiation Therapy: No - Surgical History Surgery Procedure, Year, and Place: LAPBAND,KNEE,NOSE,BREAST,INTESTINAL INTUCCEPTION-4 YRS AGO([facility]) (PARTIAL COLECTOMY) Hx Anesthesia Reactions: No - Immunization History Date of Tetanus Vaccine: utd Date of Influenza Vaccine: utd Infectious Disease History: No Infectious Disease History: Denies: Hx Clostridium Difficile, Hx Hepatitis, Hx Human Immunodeficiency Virus (HIV), Hx of Known/Suspected MRSA, Hx Shingles, Hx Tuberculosis, Hx Known/ Suspected VRE, Hx Known/Suspected VRSA, History Other Infectious Disease, Traveled Outside the [place] in Last 30 Days - Family History Known Family History: Positive: Cardiac Disease - Unspecified cardiac dz to brother, Hypertension Family History: No FHx of malignant hyperthermia or anesthesia reaction. - Social History Alcohol Use: Rare Hx Substance Use: No Substance Use Type: Reports: None Substance Use Comment - Amount & Last Used: prescribed morphine Hx Tobacco Use: Yes Smoking Status (MU): Former Smoker Review of Systems Negative: Fever Positive: Vomiting, Nausea Neurological: Other - Generalized spasms All Other Systems Reviewed And Are Negative: Yes Physical Exam - Summary Physical Exam Summary: VITAL SIGNS: Reviewed. GENERAL: Patient is a well-developed and nourished female. She appears uncomfortable. Patient is not in any acute respiratory distress. HEAD AND FACE: No signs of trauma. No ecchymosis, hematomas or skull depressions. No sinus tenderness. EYES: PERRLA, EOMI x 2, No injected conjunctiva, no nystagmus. EARS: Hearing grossly intact. Ear canals and tympanic membranes are within normal limits. MOUTH: Oropharynx within normal limits. NECK: Supple, trachea is midline, no adenopathy, no JVD, no carotid bruit, no c- spine tenderness, neck with full ROM. CHEST: Symmetric, no tenderness at palpation LUNGS: Clear to auscultation bilaterally. No wheezing or crackles. CVS: Regular rate and rhythm, S1 and S2 present, no murmurs or gallops appreciated. ABDOMEN: Soft, non-tender. No signs of distention. No rebound no guarding, and no masses palpated. Bowel sounds are normal. EXTREMITIES: FROM in all major joints, no edema, no cyanosis or clubbing. NEURO: Alert and oriented x 3. No acute neurological deficits. Speech is normal and follows commands. SKIN: Dry and warm Triage Information Reviewed: Yes Vital Signs On Initial Exam: Initial Vitals Temp Pulse Resp BP Pulse Ox 98.2 F 74 16 158/81 96 08/30/17 00:57 08/30/17 00:57 08/30/17 00:57 08/30/17 00:57 08/30/17 00:57 Vital Signs Reviewed: Yes Diagnostics - Vital Signs Vital Signs Temp Pulse Resp BP Pulse Ox 08/30/17 00:57 98.2 F 74 16 158/81 96 - Laboratory Result Diagrams: 08/30/17 01:25 08/30/17 01:25 Lab Statement: Any lab studies that have been ordered have been reviewed, and results considered in the medical decision making process. Re-Evaluation - Re-Evaluation First Eval Re-Evaluation Time: 03:57 Comment: She feels better. She will be discharged home. Complex Multi-Symp Course/Dx Assessment/Plan: The patient is a 52 year old female complaining of generalized spasms. The patient has a history of skin cancer and she takes oral chemotherapy every other day, which has been giving her generalized spasms. At re-evaluation, the patient feels better. She has an appointment with the pain clinic tomorrow. She will be discharged home to follow up at that appointment. She is diagnosed with generalized pain, muscle pain, and muscle spasms. - Diagnoses Provider Diagnoses: Generalized pain, Muscle pain, Muscle spasm Discharge - Sign-Out/Discharge Documenting (check all that apply): Discharge - Discharge Plan Condition: Stable Disposition: HOME Patient Education Materials: Musculoskeletal Pain (ED) Referrals: [facility] [place] [facility] [Outside] - If Needed Additional Instructions: Follow up with your appointment at the pain clinic tomorrow. Return to the emergency department for any new or worsening symptoms. The documentation as recorded by the Jeremías chappell Thomas accurately reflects the service I personally performed and the decisions made by , Adrián Souza MD.
== END 2017-08-30 04:07 | disposition home or self-care (01) ==
LOC: ED 00:52
DX: R11.2 Nausea with vomiting, unspecified (principal); R52 Pain, unspecified; M79.1 Myalgia; M62.838 Other muscle spasm; Z87.891 Personal history of nicotine dependence; Z85.828 Personal history of other malignant neoplasm of skin; Z92.21 Personal history of antineoplastic chemotherapy
CPT/HCPCS: 36415; 80053; 82550; 85025; 96361; 96374; 96375; 99283; J2765; J3010; J3360

== ENCOUNTER 2018-01-29 08:09 | Emergency (ER) | payer MEDICARE, BC ==
[2018-01-29 08:36] VITALS: BP 126/85
--- NOTE | 2018-01-29 09:49 | UC ---
Throat Pain/Nasal Robby HPI - HPI Summary HPI Summary: 52 yo female presents with sore throat for the last 2 days getting increasingly more painful. She is having difficulty swallowing due to pain, but is able to tolerate liquids and food. She is currently being treated for basal cell nevus syndrome with chemotherapy, but is on a "break" from chemo for the last 3 months. Denies fever, chills, sinus symptoms, cough, SOB, chest pain, abdominal pain, n/v. - History of Current Complaint Chief Complaint: UCRespiratory Stated Complaint: SORE THROAT Time Seen by Provider: 01/29/18 09:48 Hx Obtained From: Patient Hx Last Menstrual Period: 02/23/17 Onset/Duration: Sudden Onset Severity: Moderate Pain Intensity: 6 Pain Scale Used: 0-10 Numeric - Allergies/Home Medications Allergies/Adverse Reactions: Allergies Allergy/AdvReac Type Severity Reaction Status Date / Time acetaminophen Allergy See Comment Verified 01/29/18 08:36 azithromycin Allergy See Comment Verified 01/29/18 08:36 HAS STOMACH ULCER Allergy Severe See Comment Uncoded 01/29/18 08:36 PMH/Surg Hx/FS Hx/Imm Hx - Additional Past Medical History Additional PMH: Basal cell nevus syndrome Psychological History: Anxiety - Surgical History Surgical History: Yes Surgery Procedure, Year, and Place: LAPBAND,KNEE,NOSE,BREAST,INTESTINAL INTUCCEPTION-4 YRS AGO([facility] [place]) (PARTIAL COLECTOMY) - Family History Known Family History: Positive: Cardiac Disease - Unspecified cardiac dz to brother, Hypertension Family History: No FHx of malignant hyperthermia or anesthesia reaction. - Social History Lives: With Family Alcohol Use: Rare Substance Use Type: None Substance Use Comment - Amount & Last Used: prescribed morphine Smoking Status (MU): Never Smoked Tobacco When Did the Patient Quit Smoking/Using Tobacco: 18 years ago Household Exposure Type: Cigarettes - Immunization History Most Recent Influenza Vaccination: 2017 Review of Systems Constitutional: Negative Skin: Negative Eyes: Negative ENT: Sore Throat Respiratory: Negative Cardiovascular: Negative Neurovascular: Negative Neurological: Negative Psychological: Negative All Other Systems Reviewed And Are Negative: Yes Physical Exam - Summary Physical Exam Summary: GENERAL: NAD. WDWN. No pain distress. SKIN: No rashes, sores, lesions, or open wounds. HEENT: Head: AT/NC Eyes: Conjunctiva clear without inflammation or discharge. Ears: Hearing grossly normal. TMs intact, no bulging, erythema, or edema. Nose: Nasal mucosa pink and moist. NTTP maxillary and frontal sinus. Throat: Posterior oropharynx mild erythema without tonsillar enlargement. No exudates. Uvula midline. No hoarse voice or muffled voice. NECK: Supple. Nontender. No lymphadenopathy. CHEST: CTAB. No r/r/w. No accessory muscle use. Breathing comfortably and in no distress. CV: RRR. Without m/r/g. Pulses intact. Cap refill <2seconds NEURO: Alert. PSYCH: Age appropriate behavior. Triage Information Reviewed: Yes Vital Signs: Initial Vital Signs Temp 97.1 F 01/29/18 08:33 Pulse 60 01/29/18 08:33 Resp 18 01/29/18 08:33 BP 126/85 01/29/18 08:33 Pulse Ox 98 01/29/18 08:33 Vital Signs Reviewed: Yes Throat Pain/Nasal Course/Dx - Course Course Of Treatment: Suspect pharyngitis, but given her immunocompromised status will treat her with antibiotics and have her f/u with her PCP if her symptoms persist or worsen. - Differential Dx/Diagnosis Provider Diagnoses: Pharyngitis Discharge - Sign-Out/Discharge Documenting (check all that apply): Patient Departure All imaging exams completed and their final reports reviewed: No Studies - Discharge Plan Condition: Stable Disposition: HOME Prescriptions: Amoxicillin PO (*) [Amoxicillin 500 MG CAP*] 500 mg PO Q12H #14 cap Fluconazole [Diflucan 150 MG (NF)] 150 mg PO ONCE #2 tab Patient Education Materials: Pharyngitis (ED) Referrals: Martin Landin MD [Primary Care Provider] - Additional Instructions: If you develop a fever, shortness of breath, chest pain, new or worsening symptoms - please call your PCP or go to the ED. - Billing Disposition and Condition Condition: STABLE Disposition: Home - Attestation Statements Provider Attestation: Per institutional requirements, I have reviewed the chart, however, I was not consulted specifically or made aware of this patient by the midlevel provider. I did not personally evaluate, interact with , or disposition this patient.
== END 2018-01-29 10:14 | disposition home or self-care (01) ==
LOC: UCEAST 08:09
CPT/HCPCS: 99212; G0463

== ENCOUNTER 2018-10-06 07:02 | Emergency (ER) | payer MEDICARE, BC ==
[2018-10-06 07:20] VITALS: BP 125/78
--- NOTE | 2018-10-06 07:43 | UC ---
Epistaxis Nasal HPI - HPI Summary HPI Summary: This patient is a 54-year-old female who presents to the urgent care with chief complaint of having maxillary and frontal sinus pain, greenish nasal discharge, postnasal drip, chills but no fever. She reports that she usually his the symptoms when she has an acute sinusitis. However the symptoms just started on Monday and the patient has been taking [id number] medications with no relief of symptoms. She also reports that shes been having headaches but no neck pain or visual changes. She is having chemotherapy secondary to skin cancer. She denies any sore throat, she denies any trismus, she denies any swelling of the tongue or lips. She has no other complaints. - History of Current Complaint Chief Complaint: UCRespiratory Stated Complaint: SINUS ISSUES Time Seen by Provider: 10/06/18 07:14 Hx Last Menstrual Period: 08/30/18 Pain Intensity: 5 - Allergies/Home Medications Allergies/Adverse Reactions: Allergies Allergy/AdvReac Type Severity Reaction Status Date / Time acetaminophen Allergy See Comment Verified 10/06/18 07:20 azithromycin Allergy See Comment Verified 10/06/18 07:20 HAS STOMACH ULCER Allergy Severe See Comment Uncoded 10/06/18 07:20 Home Medications: Home Medications Fluticasone Propionate [Flonase Allergy Relief] 1 spray INH DAILY PRN 10/06/18 [ History Confirmed 10/06/18] Vismodegib [Erivedge] 150 mg PO SEE INSTRUCTIONS 10/06/18 [History Confirmed ] Zicam 1 tab SL Q3HR PRN 10/06/18 [History Confirmed 10/06/18] PMH/Surg Hx/FS Hx/Imm Hx - Additional Past Medical History Additional PMH: 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 - Social History Alcohol Use: Rare Substance Use Type: Prescribed, Other Substance Use Comment - Amount & Last Used: prescribed morphine, cbd oil Smoking Status (MU): Never Smoked Tobacco When Did the Patient Quit Smoking/Using Tobacco: 18 years ago Household Exposure Type: Cigarettes - Immunization History Most Recent Influenza Vaccination: 2017 Review of Systems All Other Systems Reviewed And Are Negative: Yes Constitutional: Positive: Chills Skin: Positive: Negative Eyes: Positive: Negative ENT: Positive: Nasal Discharge, Sinus Congestion, Sinus Pain/Tenderness Respiratory: Positive: Negative Cardiovascular: Positive: Negative Gastrointestinal: Positive: Negative Genitourinary: Positive: Negative Motor: Positive: Negative Neurovascular: Positive: Negative Musculoskeletal: Positive: Negative Neurological: Positive: Negative Psychological: Positive: Negative Is Patient Immunocompromised?: Yes Physical Exam - Summary Physical Exam Summary: Vital signs: Reviewed Gen.: Patient is a well developed and nourished feamle in no acute distress. Patient is sitting comfortably on the stretcher. Head: Normacephalic and atraumatic Eyes: PERRLA, EOMI x2. Ears: Right ear canal and TM WNL and Left ear canal and TM WNL Nose and mouth: Positve maxillary and frontal sinus tenderness. Positive green discharge form the nose Neck: Supple, Positive bilateral submandibular and anterior cervical lymphadenopathy. No JVD Lungs: CTA B/L CVS: S1 & S2 present. No murmurs appreciated. ABDOMEN: Soft NT w/ positive BS. EXT: FROM x 4 NEURO: A+O X 3. Triage Information Reviewed: Yes Vital Signs: Initial Vital Signs Temp 97.5 F 10/06/18 07:15 Pulse 57 10/06/18 07:15 Resp 18 10/06/18 07:15 BP 125/78 10/06/18 07:15 Pulse Ox 96 10/06/18 07:15 Epistaxis Nasal Course/Dx - Course Course Of Treatment: On the physical exam the patient has maxillary and frontal sinus tenderness, she has is greenish nasal discharge, consistent with acute sinusitis. It is less than 10 days however, the patient is immunosuppressed secondary to the chemotherapy. Therefore, I believe that the patient would benefit from antibiotics. She reports that she usually takes Augmentin for this type of condition in the past. She also reports that she gets a vaginal infection therefore she requested Diflucan. Therefore, the patient was given the antibiotics as above and will follow with the primary care physician. She was recommended to return to the urgent care or go to the emergency department if the symptoms do not improve. She understands and agrees. - Differential Dx/Diagnosis Differential Diagnosis/HQI/PQRI: Allergic Rhinitis, Sinusitis Provider Diagnosis: Acute sinusitis Discharge - Sign-Out/Discharge Documenting (check all that apply): Patient Departure All imaging exams completed and their final reports reviewed: No Studies - Discharge Plan Condition: Stable Disposition: HOME Prescriptions: Amoxicillin/Clavulanate TAB* [Augmentin TAB 875*] 875 mg PO BID #20 tab Fluconazole 150 MG TAB* [Diflucan 150 MG TAB*] 150 mg PO UC ONCE #2 tablet Patient Education Materials: Sinusitis (ED) Referrals: Martin Landin MD [Primary Care Provider] - Additional Instructions: Take medications as instructed Increase your fluid intake Return to the UC if symptoms worsen - Billing Disposition and Condition Condition: STABLE Disposition: Home
== END 2018-10-06 07:54 | disposition home or self-care (01) ==
LOC: UCEAST 07:02
DX: J01.90 Acute sinusitis, unspecified (principal); C44.90 Unspecified malignant neoplasm of skin, unspecified
CPT/HCPCS: 99212; G0463

== ENCOUNTER 2018-10-22 18:38 | Emergency (ER) | payer BC, MEDICARE, OTHER ==
[2018-10-22 20:17] VITALS: BP 129/81
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
== END 2018-10-22 21:47 | disposition home or self-care (01) ==
LOC: UCCORT 18:38
DX: M54.5 Low back pain (principal); S22.32XA Fracture of one rib, left side, initial encounter for closed fracture; V89.2XXA Person injured in unspecified motor-vehicle accident, traffic, initial encounter; Y92.9 Unspecified place or not applicable
CPT/HCPCS: 72110; 81003; 99211; G0463

== ENCOUNTER 2019-02-10 12:22 | Emergency (ER) | payer MEDICARE, BC ==
--- OUTSIDE RECORDS SUMMARY | 2019-02-10 12:28 | XMS REPORT | Continuity of Care Document ---
:1965 External Reference #:[id number] Author Name Gómez Simmons M.D. (transmitted by agent of provider Jurgen Craig) Address [address], [place] [address] Problems Description No Information Available Social History Type Date Description Comments Sex Unknown Tobacco Use Start: Unknown End: Former Cigarette Smoker 1-5 Unknown Cigarettes Daily Smoking Status Reviewed: 01/24/19 Former Cigarette Smoker 1-5 Cigarettes Daily ETOH Use Rarely consumes alcohol Tobacco Use Start: Unknown End: Patient is a former smoker Unknown Recreational Drug Use Denies Drug Use Exercise Type/Frequency Exercises sporadically Allergies, Adverse Reactions, Alerts Active Allergies Reaction Severity Comments Date Azithromycin 01/18/2019 Medications Active Medications SIG Qnty Indications Ordering Date Provider Epinephrine 1 injection as Unknown 0.3mg/0.3ML needed allergic Solution Auto-Inject reaction Cyclobenzaprine HCL take 1 tab by mouth Unknown 10mg 2-3 times a day as Tablets needed Lyrica 1 by mouth as Unknown 25mg Capsules needed Lyrica 1 by mouth as Unknown 75mg Capsules needed Morphine Sulfate 1 tab every 4-6 Unknown 15mg hours as needed MDD Tablets 4 Erivedge 1 cap by mouth Unknown 150mg Capsules every other month Mirena (52 MG) Inserted Unknown 20mcg/24HR IUD Valium 1 tab by mouth as Unknown 5mg Tablets needed Metaxalone take 1 tablet by Unknown 800mg Tablets mouth three times a day for Muscle Pain- DO Not ... (Refer To Prescription Notes). Immunizations Description No Information Available Vital Signs Date Vital Result Comment 01/24/2019 10:57am Height 68 inches 5'8" Weight 212.00 lb Heart Rate 64 /min BP Systolic Sitting 112 mmHg BP Diastolic Sitting 70 mmHg O2 % BldC Oximetry 98 % BMI (Body Mass Index) 32.2 kg/m2 Results Description No Information Available Procedures Description No Information Available Medical Devices Description No Information Available Encounters Description No Information Available Assessments Date Code Description Provider 01/24/2019 R20.0 Anesthesia of skin Gómez Simmons M.D. Plan of Treatment Future Appointment(s):02/21/2019 10:00 am - Elliot Willams NP at [facility]01/24/2019 - Gómez Simmons M.D.R20.0 Anesthesia of skinNew Xrays:Mra Head W/O, Ordered: 01/24/19Mra Neck W/O, Ordered: 01/24/19MRI Brain W/Wo, Ordered: 01/24/19Follow up:All lab test last 1 year [facility] and [facility] after MRI and labs 3-4 weeks , co or Elliot Arvizu ENT records Functional Status Description No Information Available Mental Status Description No Information Available Referrals Description No Information Available
[2019-02-10 12:32] VITALS: BP 133/83
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
== END 2019-02-10 13:23 | disposition home or self-care (01) ==
LOC: UCEAST 12:22
DX: J32.9 Chronic sinusitis, unspecified (principal); C44.90 Unspecified malignant neoplasm of skin, unspecified; Z88.1 Allergy status to other antibiotic agents; Z88.8 Allergy status to other drugs, medicaments and biological substances
CPT/HCPCS: 99212; G0463

== ENCOUNTER 2021-06-29 23:07 | Inpatient (IN) ==
[2021-06-29 23:41] LABS: ABS Eosinophils 0.1 10^3/ul (0-0.6); ABS Lymphocytes 0.7 10^3/ul (1.0-4.8); ABS Monocytes 0.4 10^3/ul (0-0.8); ABS Neutrophils 5.5 10^3/ul (1.5-7.7); Eosinophil % 0.9 %; Hematocrit 42 % (35-47); Hemoglobin 14.1 g/dL (12.0-16.0); Mean Corpuscular HGB Conc 34 g/dL (31-36); Mean Corpuscular Hemoglobin 28 pg (27-31); Mean Corpuscular Volume 82 fL (80-97); Mean Platelet Volume 7.9 fL (7.4-10.4); Nucleated Red Blood Cells % 0.1; Platelet Count 188 10^3/uL (150-450); Red Blood Count 5.11 10^6 /uL (3.70-4.87); Red Cell Distribution Width 15 % (10-15); White Blood Count 6.6 10^3/uL (3.5-10.8)
[2021-06-29 23:58] LABS: Albumin 4.2 g/dL (3.2-5.2); Albumin/Globulin Ratio 1.5 (1-3); Calcium 9.3 mg/dL (8.6-10.3); Globulin 2.8 g/dL (2-4); Potassium 3.6 mmol/L (3.5-5.0); eGFR CKD-EPI 77.6 (>60)
[2021-06-30 00:12] LABS: INR 1.06 (0.86-1.15)
[2021-06-30] MEDS ORDERED: Al Hydrox/Mg Hydrox/Simet LIQ 30 ML UDC PO ONE (00:28)
[2021-06-30] MEDS: fentaNYL 100 mcg/2 ml 50 MCG/ML VIAL IV SLOW PU PRN ×3 (02:35→07:24)
[2021-06-30 02:58] LABS: Albumin 4.2 g/dL (3.2-5.2); Albumin/Globulin Ratio 1.5 (1-3); Direct Bilirubin 0.2 mg/dL (0.03-0.18); Globulin 2.8 g/dL (2-4); Indirect Bilirubin 0.6 mg/dL (0.3-1.0); Total Bilirubin 0.8 mg/dL (0.2-1.0)
[2021-06-30 03:01] LABS: Rapid COVID-19 Molecular Undetected (Undetected)
[2021-06-30] MEDS ORDERED: Ondansetron 4 mg VIAL 2 MG/ML 2 ml VIAL IV ONE ×2 (05:32→09:02)
[2021-06-30] MEDS ORDERED: fentaNYL 100 mcg/2 ml 50 MCG/ML VIAL IV SLOW PU ONE (05:38)
[2021-06-30] MEDS ORDERED: HYDROmorphone 1 MG/1 ML SYRINGE IV ONE (08:54)
[2021-06-30] MEDS ORDERED: Lactated Ringers 1000 ml BAG 1,000 ML IV ONE (09:03)
[2021-06-30] MEDS ORDERED: Iohexol 300 (CONTRAST) 10 ML SDV IV ONE (09:42)
[2021-06-30] MEDS ORDERED: Ondansetron 4 mg VIAL 2 MG/ML 2 ml VIAL IV PRN (11:04)
[2021-06-30] MEDS ORDERED: HYDROmorphone 0.5 MG/0.5 ML SYRINGE IV SLOW PU PRN ×2 (11:50→13:25)
[2021-06-30] MEDS ORDERED: Enoxaparin 40 MG/0.4 ML SYR SUBCUT SCH (12:00)
[2021-06-30] MEDS: Lactated Ringers 1000 ml BAG 1,000 ML IV SCH ×3 (12:39→22:18)
[2021-06-30] MEDS ORDERED: [UNRECOGNIZED DRUG - OTHER] PO SCH (13:00)
[2021-06-30] MEDS: Sucralfate 1 gm SUSP 1 GM/10 ML UDC PO SCH ×2 (17:00→20:28)
[2021-06-30] MEDS ORDERED: [UNRECOGNIZED DRUG - OTHER] PO SCH (21:00)
[2021-06-30] MEDS: HYDROmorphone 0.5 MG/0.5 ML SYRINGE IV PRN (22:18)
[2021-07-01] MEDS: HYDROmorphone 0.5 MG/0.5 ML SYRINGE IV PRN ×5 (02:27→22:26)
[2021-07-01] MEDS: Lactated Ringers 1000 ml BAG 1,000 ML IV SCH ×2 (06:20→15:31)
[2021-07-01] MEDS: Pantoprazole VIAL 40 MG VIAL IV SCH (08:56)
[2021-07-01] MEDS: Acetaminophen IV 1 GM/100ML 100 ML IV PRN ×2 (08:56→17:23)
[2021-07-01 09:50] LABS: Albumin 3.4 g/dL (3.2-5.2); Albumin/Globulin Ratio 1.4 (1-3); Calcium 8.5 mg/dL (8.6-10.3); Globulin 2.4 g/dL (2-4); Total Bilirubin 0.8 mg/dL (0.2-1.0); Total Protein 5.8 g/dL (6.4-8.9); eGFR CKD-EPI 88.3 (>60)
[2021-07-01] MEDS: Enoxaparin 40 MG/0.4 ML SYR SUBCUT SCH (11:13)
[2021-07-01] MEDS ORDERED: Pantoprazole VIAL 40 MG VIAL IV ONE (16:10)
[2021-07-01] MEDS: DULoxetine DR 60 mg CAP PO SCH (17:22)
[2021-07-02] MEDS: Lactated Ringers 1000 ml BAG 1,000 ML IV SCH ×3 (00:24→19:39)
[2021-07-02] MEDS: Acetaminophen IV 1 GM/100ML 100 ML IV PRN ×2 (03:17→12:25)
[2021-07-02 08:48] LABS: ABS Eosinophils 0.1 10^3/ul (0-0.6); ABS Lymphocytes 0.5 10^3/ul (1.0-4.8); ABS Monocytes 0.3 10^3/ul (0-0.8); ABS Neutrophils 4.2 10^3/ul (1.5-7.7); Eosinophil % 1.1 %; Hematocrit 37 % (35-47); Hemoglobin 12.7 g/dL (12.0-16.0); Lymphocyte % 10.3 %; Mean Corpuscular HGB Conc 35 g/dL (31-36); Mean Corpuscular Hemoglobin 28 pg (27-31); Mean Corpuscular Volume 82 fL (80-97); Mean Platelet Volume 7.8 fL (7.4-10.4); Platelet Count 153 10^3/uL (150-450); Red Blood Count 4.47 10^6 /uL (3.70-4.87); Red Cell Distribution Width 14 % (10-15); White Blood Count 5.1 10^3/uL (3.5-10.8)
[2021-07-02 09:00] LABS: Albumin 3.6 g/dL (3.2-5.2); Albumin/Globulin Ratio 1.4 (1-3); Calcium 8.8 mg/dL (8.6-10.3); Globulin 2.5 g/dL (2-4); Potassium 3.7 mmol/L (3.5-5.0); Total Bilirubin 0.8 mg/dL (0.2-1.0); Total Protein 6.1 g/dL (6.4-8.9); eGFR CKD-EPI 97.1 (>60)
[2021-07-02] MEDS: DULoxetine DR 60 mg CAP PO SCH ×4 (09:15→14:47)
[2021-07-02] MEDS: Pantoprazole VIAL 40 MG VIAL IV SCH ×5 (09:15→20:41)
[2021-07-02] MEDS: Enoxaparin 40 MG/0.4 ML SYR SUBCUT SCH (09:46)
[2021-07-02] MEDS: HYDROmorphone 0.5 MG/0.5 ML SYRINGE IV PRN (20:46)
[2021-07-03] MEDS: Lactated Ringers 1000 ml BAG 1,000 ML IV SCH ×2 (03:50→12:44)
[2021-07-03] MEDS: HYDROmorphone 0.5 MG/0.5 ML SYRINGE IV PRN ×2 (03:53→10:06)
[2021-07-03 06:10] LABS: Albumin 3.5 g/dL (3.2-5.2); Albumin/Globulin Ratio 1.5 (1-3); Calcium 8.7 mg/dL (8.6-10.3); Globulin 2.4 g/dL (2-4); Potassium 3.9 mmol/L (3.5-5.0); Total Bilirubin 0.7 mg/dL (0.2-1.0); Total Protein 5.9 g/dL (6.4-8.9); eGFR CKD-EPI 88.3 (>60)
[2021-07-03] MEDS: DULoxetine DR 60 mg CAP PO SCH (09:12)
[2021-07-03] MEDS: Pantoprazole VIAL 40 MG VIAL IV SCH (09:13)
[2021-07-03] MEDS: Enoxaparin 40 MG/0.4 ML SYR SUBCUT SCH (10:06)
[2021-07-04] MEDS: Lactated Ringers 1000 ml BAG 1,000 ML IV SCH ×3 (04:44→18:37)
[2021-07-04] MEDS: DULoxetine DR 60 mg CAP PO SCH (07:56)
[2021-07-04] MEDS: Pantoprazole VIAL 40 MG VIAL IV SCH ×2 (07:57→20:10)
[2021-07-04] MEDS ORDERED: Iohexol 300 (CONTRAST) 10 ML SDV IV ONE (12:13)
[2021-07-04] MEDS ORDERED: Magnesium Hydroxide LIQ 30 ML UDC PO PRN (12:39)
[2021-07-04] MEDS ORDERED: Polyethylene Glycol 3350 17 GM PACKET PO PRN (12:39)
[2021-07-04] MEDS: Enoxaparin 40 MG/0.4 ML SYR SUBCUT SCH (13:46)
[2021-07-05] MEDS: Lactated Ringers 1000 ml BAG 1,000 ML IV SCH ×2 (02:19→21:20)
[2021-07-05 06:11] LABS: ABS Eosinophils 0.1 10^3/ul (0-0.6); ABS Lymphocytes 0.8 10^3/ul (1.0-4.8); ABS Monocytes 0.3 10^3/ul (0-0.8); ABS Neutrophils 2.8 10^3/ul (1.5-7.7); Eosinophil % 3.5 %; Hematocrit 36 % (35-47); Hemoglobin 12.4 g/dL (12.0-16.0); Lymphocyte % 19.8 %; Mean Corpuscular HGB Conc 34 g/dL (31-36); Mean Corpuscular Hemoglobin 28 pg (27-31); Mean Corpuscular Volume 82 fL (80-97); Mean Platelet Volume 8.1 fL (7.4-10.4); Platelet Count 179 10^3/uL (150-450); Red Blood Count 4.43 10^6 /uL (3.70-4.87); Red Cell Distribution Width 14 % (10-15); White Blood Count 4.1 10^3/uL (3.5-10.8)
[2021-07-05 06:28] LABS: Albumin 3.4 g/dL (3.2-5.2); Albumin/Globulin Ratio 1.3 (1-3); Calcium 8.9 mg/dL (8.6-10.3); Globulin 2.6 g/dL (2-4); Potassium 3.7 mmol/L (3.5-5.0); Total Bilirubin 0.6 mg/dL (0.2-1.0); eGFR CKD-EPI 95.5 (>60)
[2021-07-05] MEDS: DULoxetine DR 60 mg CAP PO SCH (09:19)
[2021-07-05] MEDS: Pantoprazole VIAL 40 MG VIAL IV SCH ×2 (09:19→21:23)
[2021-07-05] MEDS: Enoxaparin 40 MG/0.4 ML SYR SUBCUT SCH (09:20)
[2021-07-05] MEDS: Ondansetron 4 mg VIAL 2 MG/ML 2 ml VIAL IV PRN (21:23)
[2021-07-06] MEDS: Lactated Ringers 1000 ml BAG 1,000 ML IV SCH (06:14)
[2021-07-06] MEDS: Ondansetron 4 mg VIAL 2 MG/ML 2 ml VIAL IV PRN ×2 (08:34→16:59)
[2021-07-06] MEDS: DULoxetine DR 60 mg CAP PO SCH (10:25)
[2021-07-06] MEDS: Enoxaparin 40 MG/0.4 ML SYR SUBCUT SCH (10:26)
[2021-07-06] MEDS: Pantoprazole VIAL 40 MG VIAL IV SCH ×2 (10:26→20:09)
[2021-07-06] MEDS ORDERED: Iohexol 300 (CONTRAST) 10 ML SDV IV ONE (12:36)
[2021-07-07] MEDS: DULoxetine DR 60 mg CAP PO SCH (08:44)
[2021-07-07] MEDS: Pantoprazole VIAL 40 MG VIAL IV SCH ×2 (08:45→21:20)
[2021-07-07] MEDS: Enoxaparin 40 MG/0.4 ML SYR SUBCUT SCH (10:53)
[2021-07-07 14:44] LABS: Rapid COVID-19 Molecular Undetected (Undetected)
[2021-07-07] MEDS ORDERED: Bupivacaine 0.25% EPI 200,000 30 ML SDV ONE (15:37)
[2021-07-07] MEDS ORDERED: Ondansetron 4 mg VIAL 2 MG/ML 2 ml VIAL ONE ×2 (16:10→17:44)
[2021-07-07] MEDS ORDERED: Propofol 10 MG/ML 20 ML BTL ONE ×2 (16:10→17:44)
[2021-07-07] MEDS ORDERED: Lidocaine 2% PF 5 ML VIAL ONE ×2 (16:10→17:44)
[2021-07-07] MEDS ORDERED: Rocuronium 50 mg VIAL 10 mg/ml 5 ml VIAL (50 mg) ONE ×2 (16:10→17:44)
[2021-07-07] MEDS ORDERED: Iohexol 180 (CONTRAST) 20 ML SDV IV ONE (17:30)
[2021-07-07] MEDS ORDERED: Iohexol 180 (CONTRAST) 10 ML SDV IV ONE (17:30)
[2021-07-07] MEDS ORDERED: Prochlorperazine 5 mg/ml 2 ml VIAL (10 mg) IV PRN (17:32)
[2021-07-07] MEDS ORDERED: Morphine 4 MG/ML VIAL (1 ml) IV PRN (17:32)
[2021-07-07] MEDS ORDERED: fentaNYL 100 mcg/2 ml 50 MCG/ML VIAL IV PRN (17:32)
[2021-07-07] MEDS ORDERED: oxyCODONE/Acetamin 5/325 mg TAB PO PRN (17:32)
[2021-07-07] MEDS ORDERED: Naloxone 0.4 mg VIAL 0.4 mg/ml 1 ml VIAL IV PRN (17:32)
[2021-07-07] MEDS ORDERED: HYDROcodone/ACETAMIN 5/325 mg TAB PO PRN (17:32)
[2021-07-07] MEDS ORDERED: Dexamethasone IV 4 MG/ML VIAL 1 ml VIAL IV SLOW PU ONE (17:32)
[2021-07-07] MEDS ORDERED: ceFAZolin 1 GM ADVAN 1 GM ADDV.VIAL IVPB ONE (17:39)
[2021-07-07] MEDS ORDERED: fentaNYL 100 mcg/2 ml 50 MCG/ML VIAL ONE (17:43)
[2021-07-07] MEDS ORDERED: Midazolam 2 mg/2 ml VIAL 1 mg/ml 2 ml VIAL (2 mg) ONE (17:43)
[2021-07-07] MEDS ORDERED: Dexamethasone IV 4 MG/ML VIAL 1 ml VIAL ONE (17:44)
[2021-07-07] MEDS ORDERED: EPHEDrine (Pressors) 50 MG/ML VIAL ONE (18:26)
[2021-07-07] MEDS: Acetaminophen IV 1 GM/100ML 100 ML IV PRN (21:26)
[2021-07-08 07:29] LABS: Hematocrit 38 % (35-47); Hemoglobin 12.8 g/dL (12.0-16.0); Mean Corpuscular HGB Conc 34 g/dL (31-36); Mean Corpuscular Hemoglobin 28 pg (27-31); Mean Corpuscular Volume 83 fL (80-97); Platelet Count 208 10^3/uL (150-450); Red Blood Count 4.55 10^6 /uL (3.70-4.87); Red Cell Distribution Width 14 % (10-15); White Blood Count 5.7 10^3/uL (3.5-10.8)
[2021-07-08 07:39] LABS: Calcium 9.1 mg/dL (8.6-10.3); Potassium 4.1 mmol/L (3.5-5.0)
[2021-07-08] MEDS: Pantoprazole VIAL 40 MG VIAL IV SCH (08:41)
[2021-07-08] MEDS: DULoxetine DR 60 mg CAP PO SCH (08:41)
[2021-07-08 11:12] VITALS: BP 119/76
[2021-07-08] MEDS: Enoxaparin 40 MG/0.4 ML SYR SUBCUT SCH (12:09)
== END 2021-07-08 15:00 | disposition home or self-care (01) | DRG 263 ==
LOC: ED 23:07 → MEDTELE 06-30 11:21 → SUATTDRO 06-30 11:21 → ED 06-30 13:53 → MEDTELE 06-30 13:53 → SSU 07-07 11:23
PROVIDERS: ADMIT Hospitalist; ATTEND Internal Medicine